=== PATIENT | female | born 1990 | race African-American/Black ===

== ENCOUNTER 2016-12-31 15:50 | Emergency (ER) | payer MEDICAID ==
[~2016-12-31] VITALS: Ht 167.6 cm; Wt 60.7 kg
[2016-12-31 15:53] VITALS: BP 123/85
[2016-12-31] MEDS ORDERED: DIPH,PERTUSS(ACELL),TET VAC/PF 0.5 ML IM-VACC ONE ×2 (16:30→17:24)
[2016-12-31] MEDS ORDERED: LIDOCAINE 1%, 20ML SQ ONE (16:30)
[2016-12-31] MEDS ORDERED: LIDOCAINE 1%, 20ML ONE (17:24)
== END 2016-12-31 19:06 | disposition home or self-care (01) ==
LOC: ED 18:00
DX: S61.411A Laceration without foreign body of right hand, initial encounter (principal); W25.XXXA Contact with sharp glass, initial encounter; Y93.89 Activity, other specified; Y92.009 Unspecified place in unspecified non-institutional (private) residence as the place of occurrence of the external cause; Y99.9 Unspecified external cause status
CPT/HCPCS: 12002; 99283